=== PATIENT | female | born 1980 | race Caucasian/White ===

== ENCOUNTER → 2020-12-31 | Outpatient (CLI) | payer BC ==
[~2020-12-31] MED LIST: ONDA4TAB59 PO
[2020-12-31 11:07] LABS: BASOPHILS % (AUTO) 0.5 % (0-1); EOSINOPHILS # (AUTO) 0.1 X10'3 (0-0.9); EOSINOPHILS % (AUTO) 1.8 % (0-6); HEMATOCRIT 41.7 % (35.0-45.0); LYMPHOCYTES # (AUTO) 1.6 X10'3 (1.1-4.8); LYMPHOCYTES % (AUTO) 25.2 % (21-51); MEAN CORPUSCULAR HEMOGLOBIN 29.6 PG (27.0-31.0); MEAN CORPUSCULAR HGB CONC 33.5 g/dL (33.0-36.5); MEAN CORPUSCULAR VOLUME 88.4 FL (78-98); MEAN PLATELET VOLUME 7.9 FL (7.4-10.4); MONOCYTES # (AUTO) 0.6 X10'3 (0-0.9); MONOCYTES % (AUTO) 8.6 % (2-12); NEUTROPHILS # (AUTO) 4.1 X10'3 (1.8-7.7); NEUTROPHILS % (AUTO) 63.9 % (42-75); PLATELET COUNT 294 X10'3 (140-440); RED BLOOD COUNT 4.71 X10'6 (4.20-5.60); RED CELL DISTRIBUTION WIDTH 13.1 % (11.5-14.5); WHITE BLOOD COUNT 6.4 X10'3 (4.5-11.0)
[2020-12-31 11:12] LABS: CLARITY,URINE CLEAR (Clear); COLOR,URINE YELLOW (Yellow); GLUCOSE, URINE NEGATIVE (Neg); KETONES,URINE NEGATIVE (Neg); LEUKOCYTE ESTERASE ,URINE NEGATIVE (Neg); NITRITES, URINE NEGATIVE (Neg); OCCULT BLOOD,URINE NEGATIVE (Neg); PROTEIN,URINE NEGATIVE (Neg); UROBILINOGEN,URINE 0.2 E.U/dL (0.2-1.0)
[2020-12-31 11:14] LABS: UA COLLECTION TYPE CLN CATCH MIDSTREAM
[2020-12-31 11:30] LABS: ALANINE AMINOTRANSFERASE 35 U/L (12-78); ALBUMIN 4.1 G/DL (3.4-5.0); ALBUMIN/GLOBULIN RATIO 1.1 (1.1-1.5); ALKALINE PHOSPHATASE 58 IU/L (46-116); ANION GAP 8 (8-16); ASPARTATE AMINO TRANSFERASE 19 U/L (10-37); BILIRUBIN,TOTAL 0.3 MG/DL (0.1-1.0); BLOOD UREA NITROGEN 11 MG/DL (7-18); BUN/CREATININE RATIO 15.9 (6.6-38.0); CHLORIDE 104 MMOL/L (99-107); CREATININE 0.69 MG/DL (0.40-0.90); GLUCOSE 91 MG/DL (70-104); POTASSIUM 4.3 MMOL/L (3.5-5.1); SODIUM 140 MMOL/L (135-145); TOTAL PROTEIN 7.7 G/DL (6.4-8.2); eGFR > 90 ML/MIN
[2020-12-31 12:08] LABS: CHOL/HDL RATIO 3.8 (0.00-4.99); CHOLESTEROL 222 MG/DL (0-200); HDL CHOLESTEROL 59 MG/DL (35-60); LDL CHOLESTEROL 147 MG/DL (50-100); TRIGLYCERIDES 43 MG/DL (20-135)
== END | disposition home or self-care (01) ==
LOC: LAB 10:36
PROVIDERS: ATTEND Family Medicine
DX: Z00.01 Encounter for general adult medical examination with abnormal findings (principal)
CPT/HCPCS: 36415; 80053; 80061; 81003; 84439; 84443; 85025

== ENCOUNTER 2021-04-09 14:06 | Outpatient (CLI) | payer BC ==
[2021-04-09 14:59] LABS: CHOL/HDL RATIO 3.9 (0.00-4.99); CHOLESTEROL 205 MG/DL (0-200); HDL CHOLESTEROL 52 MG/DL (35-60); LDL CHOLESTEROL 128 MG/DL (50-100); TRIGLYCERIDES 111 MG/DL (20-135)
== END 2021-04-09 23:59 | disposition home or self-care (01) ==
LOC: LAB 14:06
DX: E78.5 Hyperlipidemia, unspecified (principal)
CPT/HCPCS: 36415; 80061

== ENCOUNTER 2021-05-17 09:51 | Outpatient (CLI) | payer BC | END 2021-05-17 23:59 | disposition home or self-care (01) | LOC: LAB 09:51 | PROVIDERS: ATTEND Family Medicine | DX: B33.8 Other specified viral diseases (principal) | CPT/HCPCS: 36415 ==

== ENCOUNTER 2022-06-13 21:51 | Emergency (ER) | payer BC, OTHER ==
[~2022-06-13] VITALS: Ht 167.6 cm; Wt 68.0 kg
[2022-06-13 21:59] VITALS: BP 129/64
[2022-06-13] MEDS ORDERED: ondansetron 4mg rapidly disintigrating tab PO ONE (22:20)
[2022-06-13] MEDS ORDERED: morphine 4 MG/ML inj SYRINge IM ONE (22:20)
[2022-06-13] MEDS ORDERED: HYDR-3965 PO (23:21)
[2022-06-13] MEDS ORDERED: ONDA4TAB12 PO (23:21)
[2022-06-21] MEDS ORDERED: MULT-1085 PO (09:58)
[2022-06-21] MEDS ORDERED: AMPH10TA23 PO (09:58)
[2022-06-21] MEDS ORDERED: HYDR-3964 PO (09:58)
== END 2022-06-13 23:50 | disposition home or self-care (01) ==
LOC: ER 21:52
DX: S82.232A Displaced oblique fracture of shaft of left tibia, initial encounter for closed fracture (principal); S82.432A Displaced oblique fracture of shaft of left fibula, initial encounter for closed fracture; X58.XXXA Exposure to other specified factors, initial encounter; Y93.89 Activity, other specified; Y92.89 Other specified places as the place of occurrence of the external cause; Y99.8 Other external cause status
CPT/HCPCS: 29515; 73590; 73610; 96372; 99284; A6223; J2270; A6449

== ENCOUNTER 2022-06-17 14:16 | Outpatient (CLI) | payer BC ==
[~2022-06-17 14:16] MED LIST changes: +HYDR-3965 PO; +ONDA4TAB12 PO; -ONDA4TAB59 PO
== END 2022-06-17 23:59 | disposition home or self-care (01) ==
LOC: 64 CT 14:16
PROVIDERS: ATTEND Orthopaedic Surgery Orthopaedic Trauma
DX: S82.52XA Displaced fracture of medial malleolus of left tibia, initial encounter for closed fracture (principal); X58.XXXA Exposure to other specified factors, initial encounter; Y93.89 Activity, other specified; Y92.89 Other specified places as the place of occurrence of the external cause; Y99.8 Other external cause status
CPT/HCPCS: 73700

== ENCOUNTER 2022-06-22 11:44 | Observation (INO) | payer BC ==
[2022-06-21 10:02] LABS: BASOPHILS % (AUTO) 0.4 % (0-1); EOSINOPHILS # (AUTO) 0.2 X10'3 (0-0.9); EOSINOPHILS % (AUTO) 3.2 % (0-6); LYMPHOCYTES # (AUTO) 1.1 X10'3 (1.1-4.8); MEAN CORPUSCULAR HEMOGLOBIN 29.9 PG (27.0-31.0); MEAN CORPUSCULAR HGB CONC 33.6 g/dL (33.0-36.5); MEAN CORPUSCULAR VOLUME 88.9 FL (78-98); MEAN PLATELET VOLUME 7.8 FL (7.4-10.4); MONOCYTES # (AUTO) 0.5 X10'3 (0-0.9); MONOCYTES % (AUTO) 7.7 % (2-12); NEUTROPHILS # (AUTO) 4.2 X10'3 (1.8-7.7); NEUTROPHILS % (AUTO) 69.7 % (42-75); PRE OP HEMATOCRIT 39.2 % (35.0-45.0); PRE OP HEMOGLOBIN 13.2 g/dL (12.0-16.0); PRE OP PLATELET COUNT 255 X10'3 (140-440); RED BLOOD COUNT 4.41 X10'6 (4.20-5.60); RED CELL DISTRIBUTION WIDTH 13.7 % (11.5-14.5)
[2022-06-21 10:11] LABS: PRE OP PROTIME 10.2 SECONDS (9.0-12.0)
[2022-06-21 10:17] LABS: ALBUMIN 3.5 G/DL (3.4-5.0); ALKALINE PHOSPHATASE 57 IU/L (46-116); BLOOD UREA NITROGEN 17 MG/DL (7-18); CALCIUM 8.5 MG/DL (8.5-10.1); CHLORIDE 106 MMOL/L (99-107); CREATININE 0.68 MG/DL (0.40-0.90); PRE OP ALT 58 U/L (30-65); PRE OP ANION GAP 7 (8-16); PRE OP AST 39 U/L (10-37); PRE OP BILIRUB, TOTAL 0.3 MG/DL (0.0-1.0); PRE OP GLUCOSE 87 MG/DL (70-104); PRE OP POTASSIUM 4.1 MMOL/L (3.4-5.1); PRE OP SODIUM 139 MMOL/L (135-145); TOTAL CARBON DIOXIDE 26.4 MMOL/L (24-32); TOTAL PROTEIN 7.1 G/DL (6.4-8.2); eGFR > 90 ML/MIN
[2022-06-21 11:22] LABS: HCG SERUM QL NEGATIVE
[2022-06-22] VITALS (21 sets, daily range): BP systolic 98–129; BP diastolic 57–72
[~2022-06-22] VITALS: Ht 167.6 cm; Wt 73.8 kg
[~2022-06-22 11:44] MED LIST changes: +AMPH10TA23 PO; +HYDR-3964 PO; -HYDR-3965 PO; +MULT-1085 PO; -ONDA4TAB12 PO; +ceFAZolin inj. 2,000 MG in dextrose 5%-water 100 ML IV ONE; +famotidine 20mg tablet PO ONE; +ringers solution, lacted 1,000 ML IV SCH
[2022-06-22] MEDS ORDERED: BUPIVACAINE liposomal/PF 13.3 MG/ML vial IM ONE (15:37)
[2022-06-22] MEDS ORDERED: BUPIVAcaine/PF 2.5 mg/ml (0.25%) 30ml vial ONE (15:37)
[2022-06-22] MEDS ORDERED: fentaNYL/PF 50MCG/1 ML 2ML syringe ONE (15:41)
[2022-06-22] MEDS ORDERED: midazolam 1 mg/ML 2ml injection ONE ×2 (15:41→18:42)
[2022-06-22] MEDS ORDERED: propofol inj 20 ML IV ONE (15:46)
[2022-06-22] MEDS ORDERED: proCHLORperazine 10 MG/2 ml inj IV PRN (16:00)
[2022-06-22] MEDS ORDERED: morphine 2 MG/ML inj. syringe IV PRN ×3 (16:00→21:55)
[2022-06-22] MEDS ORDERED: ondansetron/PF 4mg/2ml inj IV PRN ×2 (16:00→21:55)
[2022-06-22] MEDS ORDERED: ringers solution, lacted 1,000 ML IV SCH (16:00)
[2022-06-22] MEDS ORDERED: meperidine/PF 25mg/ml syringe IV PRN ×3 (16:00)
[2022-06-22] MEDS ORDERED: rocuronium 10mg/ml inj IV ONE (16:01)
[2022-06-22] MEDS ORDERED: sevoflurane 250ml liquid IH ONE (16:01)
[2022-06-22] MEDS ORDERED: vancomycin 1,000mg inj ONE (16:48)
[2022-06-22] MEDS ORDERED: dexamethasone sod phosphate 4mg/ml inj. ONE (17:46)
[2022-06-22] MEDS ORDERED: ondansetron/PF 4mg/2ml inj ONE (17:48)
--- NOTE | 2022-06-22 18:15 | NUR ---
Received from OR via [facility], accompanied by Anesthesiologist DR ALVARADO and report given by Anesthesiolgist. PT IS GROGGY BUT RESPONDS TO VERBAL STIMULI, ANSWERS QUESTIONS APPROPRIATELY. PT PLACED ON BEDSIDE MONITOR, VSS. PT IS IN SR WITH RATE IN 90'S. PT IS RECEIVING 10L O2 TO MASK, TOLERATING WELL, O2 SAT > 96%. WILL TITRATE DOWN PT TOLERATES. PT IS ABLE TO MOVE EXTREMITIES FREELY AND IS ABLE TO WIGGLE TOES ON LEFT FOOT. PT HAS 20G PIV TO RT FA WITH LR INFUSING ORDERED. DRSG/SPLINT/FLOR WRAP IS CDI. PT IS C/O PAIN TO LEFT LOWER EXTREMITY. WILL VERIFY ORDERS AND TREAT PAIN. WILL CONTINUE TO ASSESS.
[2022-06-22] MEDS ORDERED: acetaminophen 1,000mg/100ml IV 100 ML IV STA (18:16)
[2022-06-22] MEDS ORDERED: ketorolac trometh. 30mg/ml inj. IV ONE (18:20)
[2022-06-22] MEDS: morphine 4 MG/ML inj SYRINge IV PRN ×4 (18:31→20:12)
[2022-06-22] MEDS ORDERED: ROPIVAcaine 0.5% (5mg/ml) 30ml vial ONE (18:38)
--- NOTE | 2022-06-22 18:44 | NUR ---
2MG VERSED WAS PULLED OUT FROM [facility] AN OVERRIDE D/T NEEDING MEDICATION URGENTLY. RECEIVED A VERBAL ORDER FROM ANESTHESIA TO GIVE 2MG VERSED IVP FOR PROCEDURE. MED PULLED AND GIVEN EMERGENTLY AND COULD NOT WAIT FOR MED TO BE CLEARED FROM PHARMACY. 2RN MED CHECK WITH NOAM Ortiz RN PERFORMED FOR SAFETY. ANESTHESIA PERFORMED PROCEDURE AT BEDSIDE.
[2022-06-22] MEDS ORDERED: midazolam 1 mg/ML 2ml injection IV ONE (18:45)
--- NOTE | 2022-06-22 18:50 | NUR ---
ANETHESIA AT BEDSIDE AND ADMINISTERED A BLOCK TO LEFT LOWER EXTREMITY D/T PAIN MEDS NOT BEING EFFECTIVE AND PT LEVEL BEING UNTOLERABLE, CRYING OUT IN PAIN. 2 MG VERSED GIVEN ORDERED BY ANESTHESIA FOR PROCEDURE. PT HAD RECEIVED A TOTAL OF 25MG DEMEROL, 30MG TORADOL, 1G IV TYLENOL, 8MG MORPHINE (4MG X2 DOSES) ALL WITH NO EFFECT. PT STATES COMFORT AND DECREASED PAIN AFTER BLOCK. WILL CONTINUE TO ASSESS.
[2022-06-22] MEDS ORDERED: HYDROmorphone inj. 0.5 MG/0.5 ML DISP.SYRIN IV PRN ×2 (19:55→21:55)
[2022-06-22] MEDS ORDERED: HYDROcodone/acetaminophen 10/325mg tab PO PRN ×2 (20:10→21:55)
--- NOTE | 2022-06-22 20:50 | NUR ---
PATIENT TAKEN TO [facility]THO FLOOR ROOM 4012A WITH ALL BELONGINGS AND HOOKED UP TO ALL MONITORS IN ROOM AND REPORT GIVEN TO REGINALDO GUZMAN WHO HAS TAKEN OVER PATIENT CARE. PT'S PAIN WAS UNCONTROL, [facility] AND PT TOLERATED WELL.
--- NOTE | 2022-06-22 20:55 | NUR ---
Pt arrived from [facility] via hospital bed, with spouse and RR team. VSS oriented to room and call light.
[2022-06-22] MEDS ORDERED: temazepam 15mg capsule PO PRN (21:00)
[2022-06-22] MEDS ORDERED: diphenhydrAMINE 50 mg/ml inj IV PRN (21:55)
[2022-06-22] MEDS ORDERED: HYDROcodone/acetaminophen 5mg/325mg tablet PO PRN (21:55)
[2022-06-22] MEDS ORDERED: mag hydrox/Alum hydrox/simeth 30ml oral suspension PO PRN (21:55)
[2022-06-22] MEDS ORDERED: normal saline 1000ml 1,000 ML IV SCH (21:55)
[2022-06-22] MEDS ORDERED: acetaminophen 325mg tablet PO PRN ×2 (21:55)
[2022-06-22] MEDS ORDERED: ondansetron 4mg rapidly disintigrating tab PO PRN (21:55)
[2022-06-22] MEDS ORDERED: bisacodyl 10mg suppository rectal RC PRN (21:55)
[2022-06-22] MEDS ORDERED: diphenhydrAMINE 25mg capsule PO PRN (21:55)
[2022-06-22] MEDS ORDERED: magnesium hydroxide 30ml (MOM) UD suspension PO PRN (21:55)
[2022-06-22] MEDS ORDERED: acetaminophen 650mg rectal suppository RC PRN (21:55)
--- NOTE | 2022-06-22 23:50 | NUR ---
PT denies pain, feels like block is working can't feel toes, toes are nice and warm.
[2022-06-23 00:15] VITALS: BP 100/51
[2022-06-23 01:15] VITALS: BP 105/63
[2022-06-23] MEDS: HYDROcodone/acetaminophen 5mg/325mg tablet PO PRN ×3 (02:41→14:10)
[2022-06-23] MEDS ORDERED: ringers solution, lacted 1,000 ML IV ONE (05:00)
[2022-06-23] MEDS ORDERED: HYDROcodone/acetaminophen 5mg/325mg tablet PO PRN (05:10)
[2022-06-23 06:00] VITALS: BP 83/42
--- NOTE | 2022-06-23 06:47 | NUR ---
report to Cee GUZMAN.
--- NOTE | 2022-06-23 06:48 | NUR ---
Patient in room ORTHO 4012. I have received report from Yanet GUZMAN and had the opportunity to ask questions and assume patient care.
[2022-06-23 06:49] LABS: BASOPHILS % (AUTO) 0.1 % (0-1); EOSINOPHILS % (AUTO) 0 % (0-6); HEMATOCRIT 36.7 % (35.0-45.0); HEMOGLOBIN 12.2 g/dl (12.0-16.0); LYMPHOCYTES # (AUTO) 0.6 X10'3 (1.1-4.8); LYMPHOCYTES % (AUTO) 4.3 % (21-51); MEAN CORPUSCULAR HEMOGLOBIN 29.7 PG (27.0-31.0); MEAN CORPUSCULAR HGB CONC 33.2 g/dL (33.0-36.5); MEAN CORPUSCULAR VOLUME 89.6 FL (78-98); MEAN PLATELET VOLUME 8.4 FL (7.4-10.4); MONOCYTES # (AUTO) 0.6 X10'3 (0-0.9); MONOCYTES % (AUTO) 4.8 % (2-12); NEUTROPHILS # (AUTO) 11.6 X10'3 (1.8-7.7); NEUTROPHILS % (AUTO) 90.8 % (42-75); PLATELET COUNT 259 X10'3 (140-440); RED CELL DISTRIBUTION WIDTH 13.2 % (11.5-14.5); WHITE BLOOD COUNT 12.8 X10'3 (4.5-11.0)
[2022-06-23 06:56] LABS: APTT 27 SECONDS (22-32)
[2022-06-23 07:11] LABS: ALANINE AMINOTRANSFERASE 59 U/L (12-78); ALBUMIN/GLOBULIN RATIO 0.9 (1.1-1.5); ALKALINE PHOSPHATASE 48 IU/L (46-116); ANION GAP 9 (8-16); ASPARTATE AMINO TRANSFERASE 36 U/L (10-37); BILIRUBIN,TOTAL 0.4 MG/DL (0.1-1.0); BLOOD UREA NITROGEN 13 MG/DL (7-18); BUN/CREATININE RATIO 21.3 (6.6-38.0); CALCIUM 8.2 MG/DL (8.5-10.1); CHLORIDE 107 MMOL/L (99-107); CREATININE 0.61 MG/DL (0.40-0.90); GLUCOSE 145 MG/DL (70-104); MAGNESIUM 1.9 MG/DL (1.5-2.4); PHOSPHORUS 3.5 MG/DL (2.3-4.5); POTASSIUM 4.3 MMOL/L (3.5-5.1); SODIUM 141 MMOL/L (135-145); TOTAL CARBON DIOXIDE 25.1 MMOL/L (24-32); TOTAL PROTEIN 6.2 G/DL (6.4-8.2); eGFR > 90 ML/MIN
[2022-06-23] MEDS ORDERED: pantoprazole 40mg Tablet.DR PO SCH (07:30)
[2022-06-23] MEDS ORDERED: dextroamphetamine/amphetamine 10mg tablet PO SCH (08:00)
[2022-06-23] MEDS ORDERED: docusate sod 100mg capsule PO SCH (08:00)
[2022-06-23] MEDS ORDERED: multivitamins, therapeutics tablet PO SCH (08:00)
[2022-06-23] MEDS ORDERED: dextroamphetamine/amphetamine 5mg tablet PO SCH (08:00)
[2022-06-23 10:00] VITALS: BP 94/49
[2022-06-23] MEDS ORDERED: PANT40TA54 PO (13:36)
== END 2022-06-23 14:35 | disposition home or self-care (01) ==
LOC: PAS 11:44 → ORTHO 4S 19:59 → PAS 19:59 → ORTHO 4S 19:59
PROVIDERS: ADMIT Orthopaedic Surgery Orthopaedic Trauma; ATTEND Orthopaedic Surgery Orthopaedic Trauma
DX: S82.872A Displaced pilon fracture of left tibia, initial encounter for closed fracture (principal); M25.572 Pain in left ankle and joints of left foot; E86.1 Hypovolemia; X58.XXXA Exposure to other specified factors, initial encounter; Y93.89 Activity, other specified; Y92.89 Other specified places as the place of occurrence of the external cause; Y99.8 Other external cause status
CPT/HCPCS: 27766; 36415; 73600; 76000; 80053; 82948; 83735; 83880; 84100; 84703; 85025; 85610; 85730; 87811; 93005; 96374; 96375; 96376; 97116; 97161; 97530; A6222; C1713; C9290; G0378; J0131; J0690; J1100; J1885; J2175; J2250; J2270; J2405; J2704; J2795; J3010; J3370; J3490; J7030; J7060; J7120; A4618; A6446; A6449; A7000

== ENCOUNTER 2022-08-01 10:45 | Outpatient (CLI) | payer BC ==
[~2022-08-01 10:45] MED LIST changes: +PANT40TA54 PO; -ceFAZolin inj. 2,000 MG in dextrose 5%-water 100 ML IV ONE; -famotidine 20mg tablet PO ONE; -ringers solution, lacted 1,000 ML IV SCH
== END 2022-08-01 23:59 | disposition home or self-care (01) ==
LOC: VAS 10:45
PROVIDERS: ATTEND Registered Nurse
DX: S82.872A Displaced pilon fracture of left tibia, initial encounter for closed fracture (principal); X58.XXXA Exposure to other specified factors, initial encounter; Y93.89 Activity, other specified; Y92.89 Other specified places as the place of occurrence of the external cause; Y99.8 Other external cause status
CPT/HCPCS: 73610; 93971

== ENCOUNTER 2022-08-19 10:19 | Outpatient (CLI) | payer BC ==
[2022-08-19 11:37] LABS: CLARITY,URINE CLEAR (Clear); GLUCOSE, URINE NEGATIVE (Neg); KETONES,URINE NEGATIVE (Neg); LEUKOCYTE ESTERASE ,URINE NEGATIVE (Neg); NITRITES, URINE NEGATIVE (Neg); OCCULT BLOOD,URINE NEGATIVE (Neg); PROTEIN,URINE NEGATIVE (Neg); UROBILINOGEN,URINE 0.2 E.U/dL (0.2-1.0)
[2022-08-19 11:39] LABS: COLOR,URINE YELLOW (Yellow); UA COLLECTION TYPE CLN CATCH MIDSTREAM
[2022-08-19 11:40] LABS: BASOPHILS % (AUTO) 0.4 % (0-1); EOSINOPHILS # (AUTO) 0.1 X10'3 (0-0.9); HEMATOCRIT 40.3 % (35.0-45.0); HEMOGLOBIN 13.8 g/dl (12.0-16.0); LYMPHOCYTES # (AUTO) 1.6 X10'3 (1.1-4.8); LYMPHOCYTES % (AUTO) 23.6 % (21-51); MEAN CORPUSCULAR HEMOGLOBIN 30.1 PG (27.0-31.0); MEAN CORPUSCULAR HGB CONC 34.1 g/dL (33.0-36.5); MEAN CORPUSCULAR VOLUME 88.4 FL (78-98); MEAN PLATELET VOLUME 8.1 FL (7.4-10.4); MONOCYTES # (AUTO) 0.5 X10'3 (0-0.9); MONOCYTES % (AUTO) 7.6 % (2-12); NEUTROPHILS # (AUTO) 4.7 X10'3 (1.8-7.7); NEUTROPHILS % (AUTO) 67.4 % (42-75); PLATELET COUNT 268 X10'3 (140-440); RED BLOOD COUNT 4.56 X10'6 (4.20-5.60); RED CELL DISTRIBUTION WIDTH 12.8 % (11.5-14.5); WHITE BLOOD COUNT 6.9 X10'3 (4.5-11.0)
[2022-08-19 11:56] LABS: HEMOGLOBIN A1C 5.2 % (4.5-6.2)
[2022-08-19 11:59] LABS: ALANINE AMINOTRANSFERASE 25 U/L (12-78); ALBUMIN 4.3 G/DL (3.4-5.0); ALBUMIN/GLOBULIN RATIO 1.3 (1.1-1.5); ALKALINE PHOSPHATASE 61 IU/L (46-116); ANION GAP 12 (8-16); ASPARTATE AMINO TRANSFERASE 15 U/L (10-37); BILIRUBIN,TOTAL 0.5 MG/DL (0.1-1.0); BLOOD UREA NITROGEN 11 MG/DL (7-18); BUN/CREATININE RATIO 14.9 (6.6-38.0); CALCIUM 9.1 MG/DL (8.5-10.1); CHLORIDE 102 MMOL/L (99-107); CHOL/HDL RATIO 3.9 (0.00-4.99); CHOLESTEROL 252 MG/DL (0-200); CREATININE 0.74 MG/DL (0.40-0.90); GLUCOSE 94 MG/DL (70-104); HDL CHOLESTEROL 64 MG/DL (35-60); LDL CHOLESTEROL 162 MG/DL (50-100); POTASSIUM 3.9 MMOL/L (3.5-5.1); SODIUM 138 MMOL/L (135-145); TOTAL CARBON DIOXIDE 24.3 MMOL/L (24-32); TOTAL PROTEIN 7.7 G/DL (6.4-8.2); TRIGLYCERIDES 57 MG/DL (20-135); eGFR 86 ML/MIN
== END 2022-08-19 23:59 | disposition home or self-care (01) ==
LOC: RAD 10:19
PROVIDERS: ATTEND Nurse Practitioner
DX: M54.50 Low back pain, unspecified (principal); M54.32 Sciatica, left side; Z00.00 Encounter for general adult medical examination without abnormal findings
CPT/HCPCS: 36415; 72110; 80053; 80061; 81003; 82306; 82607; 82746; 83036; 84439; 84443; 85025

== ENCOUNTER 2023-02-01 10:45 | Day surgery (SDC) | payer BC ==
[2023-01-31 10:01] LABS: BASOPHILS % (AUTO) 0.5 % (0-1); EOSINOPHILS # (AUTO) 0.1 X10'3 (0-0.9); EOSINOPHILS % (AUTO) 1.4 % (0-6); LYMPHOCYTES # (AUTO) 1.3 X10'3 (1.1-4.8); LYMPHOCYTES % (AUTO) 18.5 % (21-51); MEAN CORPUSCULAR HEMOGLOBIN 29.7 PG (27.0-31.0); MEAN CORPUSCULAR VOLUME 90.1 FL (78-98); MEAN PLATELET VOLUME 7.8 FL (7.4-10.4); MONOCYTES # (AUTO) 0.4 X10'3 (0-0.9); MONOCYTES % (AUTO) 6.5 % (2-12); NEUTROPHILS % (AUTO) 73.1 % (42-75); PRE OP HEMATOCRIT 42.9 % (35.0-45.0); PRE OP HEMOGLOBIN 14.1 g/dL (12.0-16.0); PRE OP PLATELET COUNT 291 X10'3 (140-440); RED BLOOD COUNT 4.76 X10'6 (4.20-5.60); RED CELL DISTRIBUTION WIDTH 14.1 % (11.5-14.5)
[2023-01-31 10:10] LABS: ALBUMIN 3.9 G/DL (3.4-5.0); ALBUMIN/GLOBULIN RATIO 1.2 (1.1-1.5); ALKALINE PHOSPHATASE 65 IU/L (46-116); BLOOD UREA NITROGEN 12 MG/DL (7-18); BUN/CREATININE RATIO 18.8 (6.6-38.0); CALCIUM 8.9 MG/DL (8.5-10.1); CHLORIDE 104 MMOL/L (99-107); CREATININE 0.64 MG/DL (0.40-0.90); PRE OP ALT 18 U/L (30-65); PRE OP ANION GAP 4 (8-16); PRE OP AST 19 U/L (10-37); PRE OP BILIRUB, TOTAL 0.3 MG/DL (0.0-1.0); PRE OP GLUCOSE 93 MG/DL (70-104); PRE OP POTASSIUM 4.2 MMOL/L (3.4-5.1); PRE OP SODIUM 137 MMOL/L (135-145); TOTAL CARBON DIOXIDE 29.1 MMOL/L (24-32); TOTAL PROTEIN 7.2 G/DL (6.4-8.2); eGFR > 90 ML/MIN
[2023-01-31 10:18] LABS: HCG SERUM QL NEGATIVE
[2023-02-01] VITALS (12 sets, daily range): BP systolic 103–125; BP diastolic 57–76
[~2023-02-01] VITALS: Ht 167.6 cm; Wt 73.7 kg
[~2023-02-01 10:45] MED LIST changes: -HYDR-3964 PO; +IBUP-1984 PO; -MULT-1085 PO; -PANT40TA54 PO; +cefazolin 2gm/D5W 100mL 100 ML IV ONE; +famotidine 20mg tablet PO ONE; +ringers solution, lacted 1,000 ML IV SCH
[2023-02-01] MEDS ORDERED: BUPIVAcaine/PF 2.5 mg/ml (0.25%) 30ml vial ONE (10:51)
[2023-02-01] MEDS ORDERED: cloNIDine hcl/PF 100mcg/ml inj ONE (11:45)
[2023-02-01] MEDS ORDERED: fentaNYL/PF 50MCG/1 ML 2ML syringe ONE (11:51)
[2023-02-01] MEDS ORDERED: midazolam 1 mg/ML 2ml injection ONE (11:52)
[2023-02-01] MEDS ORDERED: labetalol 20mg/4ml (5mg/ml) syringe IV PRN (11:55)
[2023-02-01] MEDS ORDERED: acetaminophen 1,000mg/100ml IV 100 ML IV PRN (11:55)
[2023-02-01] MEDS ORDERED: hydrALAZINE 20mg/ml inj. IV PRN (11:55)
[2023-02-01] MEDS ORDERED: ondansetron/PF 4mg/2ml inj IV PRN (11:55)
[2023-02-01] MEDS ORDERED: morphine 4 MG/ML inj SYRINge IV PRN (11:55)
[2023-02-01] MEDS ORDERED: ketorolac trometh. 30mg/ml inj. IV ONE (11:55)
[2023-02-01] MEDS ORDERED: meperidine/PF 25mg/ml syringe IV PRN ×3 (11:55)
[2023-02-01] MEDS ORDERED: ringers solution, lacted 1,000 ML IV SCH (11:55)
[2023-02-01] MEDS ORDERED: morphine 2 MG/ML inj. syringe IV PRN (11:55)
[2023-02-01] MEDS ORDERED: proCHLORperazine 10 MG/2 ml inj IV PRN (11:55)
[2023-02-01] MEDS ORDERED: sevoflurane 250ml liquid IH ONE (13:12)
[2023-02-01] MEDS ORDERED: vancomycin 1,000mg inj ONE (13:51)
[2023-02-01] MEDS ORDERED: LIDOcaine 2% (20mg/ml) 5ml vial ONE (14:00)
[2023-02-01] MEDS ORDERED: ROPIVAcaine 0.5% (5mg/ml) 30ml vial ONE (14:00)
[2023-02-01] MEDS ORDERED: propofol inj 20 ML IV ONE (14:00)
[2023-02-01] MEDS ORDERED: 0.9 % SODIUM CHLORIDE 10 ML VIAL ONE ×2 (14:00)
[2023-02-01] MEDS ORDERED: rocuronium 10mg/ml inj IV ONE (14:00)
[2023-02-01] MEDS ORDERED: dexamethasone sod phosphate 4mg/ml inj. ONE (14:01)
[2023-02-01] MEDS ORDERED: ondansetron/PF 4mg/2ml inj ONE (14:01)
--- NOTE | 2023-02-01 14:35 | NUR ---
Received from OR via [facility], accompanied by Anesthesiologist DR MENDEZ and report given by Anesthesiologist. PT IS GROGGY BUT RESPONDS TO VERBAL STIMULI AND FOLLOWS COMMANDS. PT PLACED ON BEDSIDE MONITOR, VSS. PT IN SR WITH RATE IN 90'S. PT RECEIVING 8L O2 TO MASK AND TOLERATING WELL WITH 02 SAT >95%. WILL TITRATE DOWN PT TOLERATES. PT HAS 20G PIV TO LEFT FA WITH LR INFUSING ORDERED. PT HAS FLOR-WRAP TO LEFT ANKLE THAT IS CDI. BILATERAL PALPABLE DORSALIS PEDIS PULSES PRESENT. PT DENIES PAIN AT THIS TIME. WILL CONTINUE TO ASSESS.
--- NOTE | 2023-02-01 16:33 | NUR ---
ABLE TO SAFELY AMBULATE AND TRANSFER SELF. IV TAKEN OUT WITHOUT ANY COMPLICATIONS. ALL DISCHARGE INSTRUCTIONS COVERED WITH PATIENT AND ALL QUESTIONS ANSWERED. PATIENT TAKEN OUT VIA WHEELCHAIR TO PERSONAL VEHICLE WHERE FAMILY/FRIEND DROVE PATIENT HOME.
== END 2023-02-01 16:30 | disposition home or self-care (01) ==
LOC: PAS 10:45
PROVIDERS: ATTEND Orthopaedic Surgery Orthopaedic Trauma
DX: T84.7XXA Infection and inflammatory reaction due to other internal orthopedic prosthetic devices, implants and grafts, initial encounter (principal); F90.9 Attention-deficit hyperactivity disorder, unspecified type; G89.18 Other acute postprocedural pain; J45.909 Unspecified asthma, uncomplicated; Z98.890 Other specified postprocedural states; Z79.899 Other long term (current) drug therapy; Y83.8 Other surgical procedures as the cause of abnormal reaction of the patient, or of later complication, without mention of misadventure at the time of the procedure; Y92.89 Other specified places as the place of occurrence of the external cause
CPT/HCPCS: 20680; 36415; 64445; 64447; 73600; 76000; 80053; 82948; 84703; 85025; A6222; J0131; J0690; J0735; J1100; J1885; J2175; J2250; J2405; J2704; J2795; J3010; J3370; J3490; J7030; J7120; Z7506; Z7508; Z7512; A4618; A6449; A7000